=== PATIENT | female | born 1960 | race Caucasian/White ===

== ENCOUNTER 2016-06-09 17:32 | Emergency (ER) | payer MEDICAID ==
--- NOTE | 2016-06-09 18:16 | ED Physician Chart ---
Chief Complaint/HPI - Patient Information Date Seen:: 06/09/16 Time Seen:: 18:00 Chief Complaint:: left hip pain History of Present Illness:: patient developed left buttocks pain three months ago. Left anterior thigh numbness started about two months ago. Three days ago pain started to radiate all the way down to her feet and toes now feel numb. No bladder or bowel problem except sitting on the toilet today increased the pain. Historian:: Patient Review:: Nurse's Note Reviewed Review of Systems - Review of Systems General/Constitutional: No fever, No chills Skin: No skin lesions Head: No headache Eyes: No loss of vision ENT: No earache Neck: No neck pain Cardio Vascular: No chest pain, No palpitations Pulmonary: No SOB, No cough GI: No nausea, No vomiting, No diarrhea G/U: No dysuria Musculoskeletal: Bone or joint pain, Back pain Psychiatric: No prior psych history, No depression, No anxiety Hematopoietic: No bruising Allergic/Immuno: No urticaria Neurological: No syncope Family Medical History - Family Member Mother History Unknown: Yes Name:: YULISA CÁRDENAS Ethnicity: Non- Living Status: Hx Family Cancer: Yes Physical Exam - Physical Examination General/Constitutional: Well-developed, well-nourished, Alert, No distress Head: Atraumatic Eyes: Lids, conjuctiva normal, PERRL Skin: Nl inspection, No rash, No skin lesions, No ecchymosis ENMT: External ears, nose nl, TM canals nl Neck: No nuchal rigidity Respiratory: Nl effort/Exclusion, Clear to Auscultation, No Wheeze/Rhonchi/Rales Cardio Vascular: RRR, No murmur, gallop, rubs GI: No tenderness/rebounding/guarding, No organomegaly, No hernia, Normal BS's : No CVA tenderness Extremities: No tenderness or effusion Other Neuro/Psych comments:: straight leg raising of 90 degrees bilaterally; DTRs knees 2/4 and ankles 3/4 Misc: Normal back Labs/Radiology/EKG Results - Radiology Results Results: X-rays showed arthritis only ED Septic Shock - . Is Septic Shock (SBP<90, OR Lactate>4 mmol\L) present?: No Reassessment (Disposition) - Reassessment Reassessment:: no pain relief after toradol; patient ambulatory Reassessment Condition:: Unchanged - Diagnosis Diagnosis:: low back pain; arthritis back - Aftercare/Follow up Instructions Aftercare/Follow-Up Instructions:: Refer to Discharge Instructions Medication Prescribed:: Jason #14 Sig 1 QID PRN - Patient Disposition Discharge/Transfer:: Home Condition at Disposition:: Stable, Unchanged ED Discharge Plan - Patient Disposition Instructions: Sciatica Additional Instructions: bed rest
--- NOTE | 2016-06-10 09:08 | Diagnostic Imaging Report ---
Pelvis single view Indication: pain Comparison: none Findings: Mild degenerative changes of the hip joints are noted. No evidence of an acute fracture or dislocation. Mild degenerative changes of the lower lumbar spine are noted. SI joints are preserved. Pelvic phleboliths are noted. Impression: No evidence of an acute fracture. Mild degenerative changes. In the setting of trauma, if clinical symptoms persist and there is continued concern for an occult fracture, follow up exams in 5-7 days is suggested.
--- NOTE | 2016-06-10 09:10 | Diagnostic Imaging Report ---
Lumbar spine 5 views Indication: Pain radiating down to the left leg Comparison: none Findings: No evidence of an acute compression fracture or subluxation. There is mild accentuation of the thoracic kyphosis. Multilevel moderate degenerative changes are noted including mild disc space loss of height at L3/L4 and L4/L5. Multilevel marginal osteophytic spurring is noted. Multilevel facet degenerative changes are also noted. The SI joints are preserved. Atherosclerosis is noted. Impression: Multilevel moderate degenerative changes. Given patient's clinical history, consider follow-up assessment with MRI examination. No evidence of an acute compression fracture or subluxation. Atherosclerotic vascular disease. In the setting of trauma, if clinical symptoms persist and there is continued concern for an occult fracture, follow up exams in 5-7 days is suggested.
== END 2016-06-09 21:00 | disposition home or self-care (01) ==
LOC: ER 17:32
DX: M46.96 Unspecified inflammatory spondylopathy, lumbar region (principal)
CPT/HCPCS: 99284; 96372; 72110; 72170; J1885; Z7502